=== PATIENT | male | born 1960 | race Caucasian/White ===

== ENCOUNTER 2017-04-14 14:51 | Outpatient (CLI) | payer BC ==
[~2017-04-14] VITALS: Ht 188 cm; Wt 93.3 kg
[~2017-04-14 14:51] MED LIST: ANDROGEL1% INJ; CALCIUM500 MG PO; LORTAB 5/500 501 TAB PO; NO HOME MEDICATIONS; TESTOSTERONE1 POW IJ; VITAMIN D
[2017-04-14 15:25] VITALS: BP 130/71; PULSE 87; TEMP 97.5
== END 2017-04-14 16:07 | disposition home or self-care (01) ==
LOC: EUO 14:51
DX: M81.0 Age-related osteoporosis without current pathological fracture (principal); Z79.899 Other long term (current) drug therapy
CPT/HCPCS: J3489

== ENCOUNTER 2018-05-19 14:17 | Outpatient (CLI) | payer BC ==
[~2018-05-19] VITALS: Ht 188 cm; Wt 79.5 kg
[2018-05-19 15:26] VITALS: BP 120/62; PULSE 52; TEMP 97.7
== END 2018-05-19 15:28 | disposition home or self-care (01) ==
LOC: EUO 14:17
DX: M81.0 Age-related osteoporosis without current pathological fracture (principal)
CPT/HCPCS: J3489

== ENCOUNTER 2019-07-26 15:00 | Outpatient (CLI) | payer BC ==
[~2019-07-26] VITALS: Ht 188 cm; Wt 92.6 kg
[2019-07-26 15:15] VITALS: BP 118/68; PULSE 87; TEMP 98.1
[2019-07-26] MEDS ORDERED: VITAMIN D32000 IU PO (15:44)
== END 2019-07-26 17:06 | disposition home or self-care (01) ==
LOC: EUO 15:00
DX: M81.0 Age-related osteoporosis without current pathological fracture (principal)
CPT/HCPCS: J3489

== ENCOUNTER 2019-10-19 12:33 | Inpatient (IN) | payer BC ==
[~2019-10-19] VITALS: Ht 188 cm; Wt 85.8 kg
[~2019-10-19 12:33] MED LIST changes: +VITAMIN D32000 IU PO
[2019-12-07] VITALS (9 sets, daily range): BP systolic 115–132; BP diastolic 58–80; PULSE 66–103; TEMP 98–98.7
--- NOTE | 2019-12-07 16:25 | NUR ---
PT TO ROOM 327 PER BED WITH REPORT FROM [facility]ATE [facility] TECHNICIAN @[id number]. VSS, DRESSING TO RIGHT HIP CDI WITH AQUAACEL OVER INCISION. IV TO PUMP.SCDS AND TEDS BILATERALY.
--- NOTE | 2019-12-07 16:37 | NUR ---
SW met with the patient to discuss discharge plan. The patient lives in [place] with his , Lakeshia (ph#[phone]). He reports independence with ADLs and has a walker. The patient's PCP is Dr. Holland Shipley and he receives his medications at [facility]. He reports no difficulties obtaining his meds. The patient does not have advanced directives in EMR, but he reports that he believe he has them completed and that his is his DPOA-HC. The patient plans to return home with his and receive outpatient PT at [facility] upon discharge. No additional needs at this time.
--- NOTE | 2019-12-07 20:50 | NUR ---
PT IN BED. IS ALERT AND ORIENTED X4. HAS IVF INFUSING TO LEFT WRIST WITHOUT REDNESS OR SWELLING. TAKES HS MEDS INCLUDING OXYCODONE 5MG FOR PAIN 3/10 TO LEFT HIP. RUDOLPH TO BSD WITH YELLOW URINE.
--- NOTE | 2019-12-07 21:30 | NUR ---
PT AMBULATES WITH ASSIST TO DOORWAY AND BACK TO CHAIR AT BEDSIDE, WITH ASSIST OF 1 AND WALKER.
[2019-12-08 00:04] VITALS: BP 111/50; PULSE 93; TEMP 100.7
--- NOTE | 2019-12-08 04:00 | NUR ---
Pt denies pain at this time.
[2019-12-08 04:06] VITALS: BP 109/56; PULSE 80; TEMP 98.5
[2019-12-08 06:54] LABS: HEMATOCRIT 40.4 % (42.0-52.0); HEMOGLOBIN 14.4 g/dl (13.5-18.0)
[2019-12-08] MEDS ORDERED: ASPI325T6 PO (08:04)
[2019-12-08] MEDS ORDERED: NORCO 325 MG-7.1 TAB PO (08:05)
[2019-12-08] MEDS ORDERED: ROXICODONE 55 MG/TAB PO (08:05)
--- NOTE | 2019-12-08 09:41 | NUR ---
PT UP WITH THERAPY AMBULATING 100 +FEET WITH STEADY GAIT. DRESSING CDI. PAIN WELL CONTROLLED WITH PO MEDS.
[2019-12-08 09:51] VITALS: BP 113/61; PULSE 86; TEMP 98.9
--- NOTE | 2019-12-08 10:55 | NUR ---
First visit from the mail carriers supervisor. No needs right now.
--- NOTE | 2019-12-08 11:19 | NUR ---
DISCONTINUED RUDOLPH CATHETER PT TOLERATED WELL TIP INTACT. 350 MLKS CLEAR YELLOW URINE REMOVED FROM BAG.
[2019-12-08 12:01] VITALS: BP 100/52; PULSE 85; TEMP 99.2
== END 2019-12-08 15:12 | disposition home or self-care (01) | DRG 470 ==
LOC: JCC 12-07 08:24
PROVIDERS: ADMIT Orthopaedic Surgery
PROC: 0QU70JZ Supplement Left Upper Femur with Synthetic Substitute, Open Approach (ICD-10-PCS; 2019-12-07)
PROC: 0SRB04A Replacement of Left Hip Joint with Ceramic on Polyethylene Synthetic Substitute, Uncemented, Open Approach (ICD-10-PCS; principal; 2019-12-07 13:45)
PROC: 0QP704Z Removal of Internal Fixation Device from Left Upper Femur, Open Approach (ICD-10-PCS; 2019-12-07 13:45)
DX: M16.52 Unilateral post-traumatic osteoarthritis, left hip (principal); M87.252 Osteonecrosis due to previous trauma, left femur; M21.752 Unequal limb length (acquired), left femur
CPT/HCPCS: A4314; A9284; C1713; C1776; J0690; J2250; J2405; J2704; J7120

== ENCOUNTER 2020-11-29 14:56 | Outpatient (CLI) | payer BC ==
[~2020-11-29] VITALS: Ht 188 cm; Wt 87.6 kg
[~2020-11-29 14:56] MED LIST changes: +ASPI325T6 PO; +NORCO 325 MG-7.1 TAB PO; +ROXICODONE 55 MG/TAB PO
[2020-11-29 15:34] VITALS: BP 121/70; PULSE 88; TEMP 98
[2020-11-29] MEDS ORDERED: CALCIUM 600MG+D1 TAB PO (15:45)
--- NOTE | 2020-11-29 16:03 | NUR ---
Pt tolerates infusion without issue. IV DC'd with catheter intact. He ambulates from dept with steady gait.
== END 2020-11-29 16:04 | disposition home or self-care (01) ==
LOC: EUO 14:56
DX: M85.80 Other specified disorders of bone density and structure, unspecified site (principal)
CPT/HCPCS: J3489

== ENCOUNTER 2021-12-26 12:40 | Outpatient (CLI) | payer BC ==
[~2021-12-26] VITALS: Ht 188 cm; Wt 88.0 kg
[~2021-12-26 12:40] MED LIST changes: -ANDROGEL1% INJ; +CALCIUM 600MG+D1 TAB PO; +DEPO-TESTOS200 MG/M1
[2021-12-26 13:23] VITALS: BP 134/71; PULSE 83; TEMP 97.9
== END 2021-12-26 17:16 | disposition home or self-care (01) ==
LOC: EUO 12:40
DX: M81.8 Other osteoporosis without current pathological fracture (principal)
CPT/HCPCS: J3489